=== PATIENT | female | born 1945 | race Caucasian/White ===

== ENCOUNTER 2020-02-04 07:02 | Outpatient (CLI) | payer MEDICARE, SELFPAY ==
[2020-02-04 07:28] LABS: Basophils Absolute Auto 0.05 K/mm3 (0.00-0.10); Basophils Percent Auto 0.9 % (0.0-1.0); Eosinophils Absolute Auto 0.22 K/mm3 (0.02-0.50); Eosinophils Percent Auto 3.9 % (1.0-6.0); Hematocrit 40.2 % (35.0-42.0); Hemoglobin 13.4 g/dL (11.7-13.8); Immature Granulocyte Absolute 0.02 K/mm3 (0.00-0.00); Immature Granulocyte Percent A 0.4 % (0.0-0.0); Lymphocytes Absolute Auto 1.31 K/mm3 (1.10-4.50); Lymphocytes Percent Auto 23.4 % (18.0-42.0); Mean Corpuscular HGB Conc 33.3 g/dL (32.0-36.0); Mean Corpuscular Hemoglobin 29.1 pg (27.0-31.0); Mean Corpuscular Volume 87.2 fL (78.0-102.0); Mean Platelet Volume 9.2 fl (9.2-11.8); Monocytes Absolute Auto 0.55 K/mm3 (0.10-0.90); Monocytes Percent Auto 9.8 % (2.0-11.0); Neutrophils Absolute Auto 3.4 K/mm3 (1.7-7.2); Neutrophils Percent Auto 61.6 % (50.0-70.0); Platelet Count Result 211 K/mm3 (150-420); Red Blood Count 4.61 M/mm3 (4.20-5.40); Red Cell Distribution Width 12.4 % (11.6-14.4); White Blood Count 5.6 K/mm3 (4.8-10.8)
[2020-02-04 08:49] LABS: Anion Gap 10.5 mmol/L (7-16); Blood Urea Nitrogen 18 mg/dL (7-18); Calcium 8.6 mg/dL (8.5-10.1); Carbon Dioxide 33 mmol/L (21-32); Chloride 102 mmol/L (98-108); Cholesterol 188 mg/dL (0-200); Estimated Glomerular Filt Rate > 60; Glucose 89 mg/dL (70-99); HDL Direct 57 mg/dL (40-60); LDL Cholesterol Calculated 110 mg/dL (<130); Osmolality Calculated 294 mOsm/kg (285-295); Potassium 3.5 mmol/L (3.5-5.1); Sodium 142 mmol/L (136-145); Triglycerides 103 mg/dL (0-150)
[2020-02-04 09:39] LABS: Thyroid Stimulating Hormone Reflex 4.57 u/IU/mL (0.36-3.74)
[2020-02-04 10:01] LABS: Free T4 Free Thyroxine Reflex 1.21 ng/dL (0.76-1.46)
== END 2020-02-04 07:03 | disposition home or self-care (01) ==
PROVIDERS: PCP Family Medicine; Visit Provider Family Medicine
DX: I10 Essential (primary) hypertension (principal); Z12.11 Encounter for screening for malignant neoplasm of colon; Z12.12 Encounter for screening for malignant neoplasm of rectum
CPT/HCPCS: 36415; 80048; 80061; 84439; 84443; 85025

== ENCOUNTER 2020-02-12 14:46 | Outpatient (CLI) | payer MEDICARE, OTHER, SELFPAY ==
--- NOTE | ~2020-02-12 | MM_ITS ---
CORRECTED REPORT ORDER CHANGE TITLE CHANGE 02/12/20 [facility] [place] EXAMINATION: MM screening mammo BI WITH TONY HISTORY: Screening mammogram TECHNIQUE: Craniocaudal and mediolateral oblique 3-D tomosynthesis images were obtained and synthetic 2-D images were generated. CAD analysis was submitted and interpreted. COMPARISON: 03/28/2017 BREAST PARENCHYMAL COMPOSITION: FINDINGS: Stable benign-appearing left subareolar mass. There is no evidence of suspicious mass, calcification, or architectural distortion to suggest malignancy in either breast. There has been no suspicious interval change. IMPRESSION: 1. No mammographic evidence of malignancy. 2. Recommend routine screening mammography in one year. BI-RADS Category 2: Benign finding(s). Reviewed, dictated and finalized at location A. MTDD
== END 2020-02-12 14:47 | disposition home or self-care (01) ==
LOC: CHSIMG 14:49
PROVIDERS: PCP Family Medicine; Visit Provider Family Medicine
DX: Z12.31 Encounter for screening mammogram for malignant neoplasm of breast (principal)
CPT/HCPCS: 77063; 77067

== ENCOUNTER 2020-06-04 03:51 | Outpatient (CLI) | payer MEDICARE, OTHER, SELFPAY ==
[2020-06-04 19:05] LABS: SARS-CoV-2 RNA PCR Negative
== END 2020-06-04 03:52 | disposition home or self-care (01) ==
LOC: ANHCOVIDDT 03:52
PROVIDERS: PCP Family Medicine; Visit Provider Internal Medicine Gastroenterology
DX: Z01.812 Encounter for preprocedural laboratory examination (principal); Z20.828 Contact with and (suspected) exposure to other viral communicable diseases
CPT/HCPCS: 87635; C9803; U0003

== ENCOUNTER 2020-06-06 01:47 | Day surgery (SDC) | payer MEDICARE, OTHER, SELFPAY ==
[2020-06-02 10:17] VITALS: BMI 22.7
[2020-06-06 09:55] VITALS: BP 150/79; PULSE 72; RESP 18; TEMP 36.6; O2SAT 100; BMI 22.0
--- NOTE | 2020-06-06 09:57 | P.PNAN_ITS ---
Anes - Initial Pre Proc Eval Procedure: Operation Date: 06/06/20 11:15 Proposed Procedures p Screening Colonoscopy - James Barclay MD Date/Time: 06/06/20 09:57 Surgeon: James Barclay MD Pre Op Diagnosis: Neoplasm Screening Patient Data Age: 75 Gender: F Height: 1.7 m Weight: 65.9 kg Allergies Allergy/AdvReac Type Severity Reaction Status Date / Time Sulfonamides Allergy Intermediate Unknown Uncoded 06/06/20 09:54 Home Medications Medication Instructions Recorded Confirmed Type aspirin 81 mg tablet,delayed 81 mg PO DAILY #90 tablet 01/28/20 06/06/20 Rx release metoprolol tartrate 50 mg tablet 50 mg PO Q12H #180 tablet 01/28/20 06/02/20 Rx simvastatin 20 mg tablet 20 mg PO DAILY #90 tablet 01/28/20 06/02/20 Rx hydrochlorothiazide 25 mg tablet 25 mg PO DAILY #90 tablet 04/30/20 06/02/20 Rx levothyroxine 100 mcg tablet 100 mcg PO DAILY #90 tablet 04/30/20 06/02/20 Rx peg 3350-electrolytes 236 240 ml PO Q10M #4000 ml 05/07/20 Rx gram-22.74 gram-6.74 gram-5.86 gram solution Patient hx anesthesia problems: none Family hx anesthesia problems: none PMFSH Past Medical History Medical History Collar bone fracture 2011 Fracture of right hip 2008 Hyperlipidemia Hypertension Hypothyroidism Family History Family History Father , Age 66 Heart disease Mother , Age 58 Acute myocardial infarction Social History Social History Smoking status: Never smoker Substance use type: does not use Living arrangements: with family Additional living arrangements comments: . 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[employer] Gender identity (if verbalized by the patient): Female Spiritual care concerns: No Anes - Eval Final PreProcedure Day of Procedure 06/06/20 09:57 Patient weight: normal Heart: regular rate and rhythm Lungs: clear to auscultation and normal air movement Airway: Mallampati scale class II Neurological: alert and oriented Last oral intake: >/= 8 hours ASA classification: II Emergent: no Anesthetic plan: proceed Anesthesia type and monitoring: general GIVS Informed Consent: The patient's anesthetic plan and its attendant risks and benefits were discussed with the patient/family/POA. Questions were solicited and answers provided to the satisfaction of the patient/family/POA.
[2020-06-06] MEDS: LACTATED RINGERS 1,000 ML 150 ML IV CONT (10:08)
--- NOTE | 2020-06-06 11:32 | PM.HPGS ---
History of Present Illness History of Present Illness Consent: Risks, benefits, and alternatives have been discussed and questions answered. Patient agrees to proceed with procedure. Chief complaint: Neoplasm Screening Narrative: Tresa Cosby is a 75 year old female here for first screening colonoscopy Review of Systems Constitutional: Constitutional: Denies headache(s) and Denies weakness Eyes: Eyes: Denies blurry vision ENT: Reports Normal hearing present, Denies headache(s) and Denies neck pain Cardiovascular: Cardiovascular: Denies chest pain and Denies dyspnea Respiratory: Respiratory: Denies dyspnea Gastrointestinal: Gastrointestinal: Reports no additional gastrointestinal complaints Genitourinary: Genitourinary: Denies dysuria Musculoskeletal: Musculoskeletal: Denies neck pain Integumentary/Breasts: Skin/Breast: Denies dry skin Neurologic: Reports Normal hearing present, Denies headache(s) and Denies weakness Psychiatric: Psychiatric: Denies anxiety Endocrine: Endocrine: Denies change in body appearance Hematologic/Lymphatic: Hematologic/Lymphatic: Denies easy bleeding Allergic/Immunologic: Allergic/Immunologic: Denies urticaria PMF Past Medical History Medical History (Updated 06/06/20 @ 11:33 by James Barclay MD) Collar bone fracture 2012 Colon cancer screening Fracture of right hip 2009 Hyperlipidemia Hypertension Hypothyroidism Family History Family History Father , Age 66 Heart disease Mother , Age 58 Acute myocardial infarction Social History Social History Smoking status: Never smoker Substance use type: does not use Living arrangements: with family Additional living arrangements comments: . 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[email or web address] Gender identity (if verbalized by the patient): Female Spiritual care concerns: No Meds Home Medications and Allergies Home Medications Medication Instructions Recorded Confirmed Type aspirin 81 mg tablet,delayed 81 mg PO DAILY #90 tablet 01/28/20 06/06/20 Rx release metoprolol tartrate 50 mg tablet 50 mg PO Q12H #180 tablet 01/28/20 06/02/20 Rx simvastatin 20 mg tablet 20 mg PO DAILY #90 tablet 01/28/20 06/02/20 Rx hydrochlorothiazide 25 mg tablet 25 mg PO DAILY #90 tablet 09/16/20 10/19/20 Rx levothyroxine 100 mcg tablet 100 mcg PO DAILY #90 tablet 04/30/20 06/02/20 Rx peg 3350-electrolytes 236 240 ml PO Q10M #4000 ml 05/07/20 Rx gram-22.74 gram-6.74 gram-5.86 gram solution Allergies Allergy/AdvReac Type Severity Reaction Status Date / Time Sulfonamides Allergy Intermediate Unknown Uncoded 06/06/20 09:54 Vital Signs Vital Signs - 24 hr 06/06/20 09:55 Temperature 97.9 F Pulse Rate 72 Respiratory Rate 18 Blood Pressure 150/79 H Pulse Oximetry 100 Exam Const: General: comfortable and no acute distress HENMT: General nose exam: Normal nares present Eyes: General: appearance normal, both eyes and all related structures Neck: Neck: no JVD Resp: Auscultation: clear to auscultation bilaterally Cardio: Rate: regular rate Rhythm: regular rhythm GI: Inspection: non-distended GI Palp: Yes Soft to palpation Skin: General skin exam: normal color Neuro: General: gait normal Speech: normal speech Extrem: General: normal to inspection Psych: Mental Status: mental status grossly normal Assessment and Plan Assessment and plan (1) Colon cancer screening: Code(s): Z12.11 - Encounter for screening for malignant neoplasm of colon Status: Acute Assessment and Plan: will proceed with colonoscopy (2) Hypertension: Code(s): I10 - Essential (primary) hypertension Status: Chronic
[2020-06-06 11:34] VITALS: BP 86/42; PULSE 65; RESP 14; O2SAT 99
[2020-06-06 11:44] VITALS: BP 87/44; PULSE 64; RESP 13; O2SAT 99
[2020-06-06 11:54] VITALS: BP 117/60; PULSE 66; RESP 17; O2SAT 99
== END 2020-06-06 12:22 | disposition home or self-care (01) ==
PROVIDERS: PCP Family Medicine; Visit Provider Internal Medicine Gastroenterology
PROC: 0DJD8ZZ Inspection of Lower Intestinal Tract, Via Natural or Artificial Opening Endoscopic (ICD-10-PCS; CPT 45378; principal; 2020-06-06 11:15)
DX: Z12.11 Encounter for screening for malignant neoplasm of colon (principal); K63.5 Polyp of colon; D12.8 Benign neoplasm of rectum; K57.90 Diverticulosis of intestine, part unspecified, without perforation or abscess without bleeding; K64.8 Other hemorrhoids; I10 Essential (primary) hypertension; E03.9 Hypothyroidism, unspecified; E78.5 Hyperlipidemia, unspecified
CPT/HCPCS: 45385; 88305; J2704; J7120

== ENCOUNTER 2020-09-05 08:12 | Outpatient (CLI) | payer MEDICARE, OTHER, SELFPAY ==
--- NOTE | ~2020-09-05 | DEXA_ITS ---
Bone Density Report Name: Tresa Cosby Age: 75 Sex: Female Ethnicity: White Date of : 1945 Indication: postmenopausal; screening for osteoporosis; prior fracture; Referring Provider: Cezar Ray Study: Bone densitometry was performed. Exam Date: September 05, 2020 Accession number: [id number] Bone Density: Region BMD T-score Z-score Classification AP Spine(L1-L4) 0.929 -1.1 1.3 Osteopenia Femoral Neck (Left) 0.627 -2.0 0.1 Osteopenia Total Hip (Left) 0.671 -2.2 -0.5 Osteopenia World Health Organization criteria for BMD impression classify patients as: Normal (T-score at or above -1.0), Osteopenia (T-score between -1.0 and -2.5), or Osteoporosis (T-score at or below -2.5). 10-year Fracture Risk: FRAX not reported because: Prior hip or vertebral fracture Clinical Information Provided by Patient: Have had a previous hip or vertebral fracture Has had a low trauma fracture Menopause Age: 51 Drinks caffeinated beverages Onset of menses at age 15 Number of children 3 Impression: The patient has low bone mass, based on the Left Total Hip T-score. The patient has risk factors, including: previous fracture. Discussion: INCREASED RISK OF FRACTURE DUE TO HISTORY OF FRACTURE. The patient's previous fracture puts the patient at high risk of a future fracture. In untreated patients, the risk of osteoporotic fracture increases approximately two-fold for each 1.0 SD decrease in T-score. Low bone density is not the only risk factor for fracture; also consider factors such as patient's age, frailty or poor health, risk of falling, risk of injury, previous osteoporotic fracture, family history of osteoporosis, cigarette smoking, low body weight, etc. Not everyone with a low trauma fracture has osteoporosis; osteomalacia and other metabolic bone disorders should also be considered. Patients who have osteoporosis should be evaluated for specific diseases and conditions (secondary causes) that may cause or contribute to bone loss and fracture risk. National Osteoporosis Foundation (NOF) recommends pharmacologic intervention for patients with a prior hip or vertebral fracture regardless of BMD T-score. The patient should follow a healthful lifestyle (good nutrition with adequate calcium and vitamin D, and appropriate weight-bearing exercise). Follow-Up: Consider a repeat BMD and Vertebral Fracture Assessment (VFA) exam in 2 years or sooner if medically necessary, to reassess this patient's status. Reported by: Dr. Albin Casillas on 09/05/2020 8:32:00 AM. Reviewed, dictated and finalized at location [facility]
== END 2020-09-05 08:13 | disposition home or self-care (01) ==
LOC: CHSIMG 08:14
PROVIDERS: PCP Family Medicine; Visit Provider Family Medicine
DX: Z78.0 Asymptomatic menopausal state (principal)
CPT/HCPCS: 77080

== ENCOUNTER 2021-01-11 13:20 | Emergency (ER) | payer MEDICARE, OTHER, SELFPAY ==
[2021-01-11 13:30] VITALS: BP 187/93; PULSE 76; RESP 16; TEMP 36.4; O2SAT 94
--- NOTE | 2021-01-11 13:53 | ECG_ITS ---
Measurements Intervals Dick[place] Rate: 65 P: 56 NJ: 170 QRS: -38 QRSD: 100 T: 21 QT: 406 QTc: 424 Interpretive Statements SINUS RHYTHM LEFT AXIS DEVIATION VOLTAGE CRITERIA FOR LVH BORDERLINE R WAVE PROGRESSION, ANTERIOR LEADS INFERIOR INFARCT, AGE INDETERMINATE BASELINE ARTIFACT- II, III ABNORMAL ECG Electronically Signed On 01-11-2021 19:53:17 CDT by Shreyas Gloria D.O.
[2021-01-11] MEDS: amLODIPine BESYLATE 5 MG TABLET PO (14:15)
[2021-01-11 14:19] LABS: Appearance Urine Clear (Clear); Bilirubin Urine Negative (Negative); Color Urine Yellow (Yellow); Glucose Urine UA Negative (Negative); Ketones Urine Negative (Negative); Leukocyte Esterase Ur Negative (Negative); Nitrate Urine Negative (Negative); Protein Urine Negative (Negative); Urobilinogen Urine 0.2 mg/dL (0.2-1.0); pH Urine 6.5 (5.0-8.0)
[2021-01-11 14:24] LABS: Add Urine Microscopic? YES; Bacteria Urine Trace /hpf; Blood Urine Trace-Intact (Negative); RBC Urine 0-2 /hpf (0-2); Squamous Epithelial Cell Urine None seen /hpf (Few); WBC Urine 0-3 /hpf (0-3)
[2021-01-11 14:42] LABS: Alanine Aminotransferase 26 U/L (14-59); Albumin Level 4.1 g/dL (3.4-5.0); Alkaline Phosphatase 105 U/L (46-116); Anion Gap 10 mmol/L (8-16); Aspartate Amino Transferase 20 U/L (15-37); Bilirubin,Total 0.3 mg/dL (0.00-1.00); Blood Urea Nitrogen 13 mg/dL (7-18); Calcium 9.1 mg/dL (8.5-10.1); Carbon Dioxide 31 mmol/L (21-32); Chloride 100 mmol/L (98-108); Estimated CRCL calculation 46 ml/min; Estimated Glomerular Filt Rate 60; Glucose 101 mg/dL (70-99); NT Pro B Type Natriuretic Pept 333 pg/mL (0-125); Osmolality Calculated 292 mOsm/kg (285-295); Potassium 3.3 mmol/L (3.5-5.1); Sodium 141 mmol/L (136-145); Thyroid Stimulating Hormone 4.15 uIU/mL (0.36-3.74); Total Protein 8.3 g/dL (6.4-8.2); Troponin I 4.4 ng/L (0.00-60.4)
[2021-01-11 14:45] VITALS: BP 166/80; PULSE 70; RESP 14; O2SAT 96
--- NOTE | 2021-01-11 15:01 | ED.GENADULT ---
HPI - General Adult General Chief complaint: Recheck/Abnormal Lab/Rx Stated complaint: High BP Source: patient Mode of arrival: ambulatory Limitations: no limitations History of Present Illness HPI narrative: this is a 75-year-old female with a history of hypertension that presents to the emergency department with some elevated blood pressures initially her blood pressure 187/93 with a mild headache with no blurry vision no nausea vomiting no dizziness no chest pain no shortness of breath. The blood pressure 187/93 has some as patient has been on metoprolol 100 b.i.d. for her blood pressure. Currently there is no dysuria no hematuria no flank pain. Onset (ago): hour(s) Location: head ( headache) Severity: mild Severity scale (1-10): 3 Related Data Allergies Allergy/AdvReac Type Severity Reaction Status Date / Time Sulfa (Sulfonamide Allergy Hives Verified 01/11/21 13:24 Antibiotics) amlodipine AdvReac Intermediate Swelling Verified 10/13/20 09:28 Review of Systems Review of Systems: All systems reviewed & are unremarkable except as noted in HPI and below PMFSH Past Medical History Medical History Collar bone fracture 2011 Colon cancer screening Fracture of right hip 2008 Hyperlipidemia Hypertension Hypothyroidism Family History Family History Father , Age 66 Heart disease Mother , Age 58 Acute myocardial infarction Social History Social History Smoking status: Never smoker Substance use type: does not use Additional living arrangements comments: . 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[employer] Gender identity (if verbalized by the patient): Female Spiritual care concerns: No Exam Const: General: no acute distress and alert Orientation/consciousness: patient oriented x3 HENMT: Head: normal to inspection Eyes: Conjunctivae: conjunctivae normal Pupils: Equal, round and reactive pupils present Neck: Neck: normal visual inspection Chest: Chest palpation & inspection: normal inspection of the chest Resp: Effort & Inspection: normal respiratory effort Cardio: Rate: regular rate Rhythm: regular rhythm GI: GI Palp: Yes Soft to palpation Back/Spine/Pelvis: Back: no CVA tenderness Skin: General skin exam: normal color Rashes: no rashes Neuro: General: patient oriented x3, moves all extremities, no meningeal signs and no focal motor deficits Extrem: General: normal to inspection and no pedal edema Psych: Mental Status: mental status grossly normal Affect: normal affect Course Course Emergency Course: Re-evaluation of patient blood pressure improved at 161/80, patient received a dose of Norvasc 5 mg and a dose of potassium 40 mEq orally. Vital Signs Vital signs: Vital Signs Temperature 36.4 C 01/11/21 13:30 Pulse Rate 76 01/11/21 13:30 Respiratory Rate 16 01/11/21 13:30 Blood Pressure 187/93 H 01/11/21 13:30 Pulse Oximetry 94 01/11/21 13:30 Temperature 36.4 C 01/11/21 13:30 Pulse Rate 76 01/11/21 13:30 Respiratory Rate 16 01/11/21 13:30 Blood Pressure 187/93 H 01/11/21 13:30 Pulse Oximetry 94 01/11/21 13:30 Medical Decision Making Vital Signs Vital Signs: Vital Signs Temperature 36.4 C 01/11/21 13:30 Pulse Rate 76 01/11/21 13:30 Respiratory Rate 16 01/11/21 13:30 Blood Pressure 187/93 H 01/11/21 13:30 Pulse Oximetry 94 01/11/21 13:30 Temperature 36.4 C 01/11/21 13:30 Pulse Rate 76 01/11/21 13:30 Respiratory Rate 16 01/11/21 13:30 Blood Pressure 187/93 H 01/11/21 13:30 Pulse Oximetry 94 01/11/21 13:30 Lab Data Result diagrams: 01/11/21 14:13 Labs: Lab Results 01/11/21 01/11/21 01/11/21 Range/Units 13:54 14:13 14:13 Sodium
== END 2021-01-11 15:18 | disposition home or self-care (01) ==
PROVIDERS: Emergency Provider Emergency Medicine; PCP Family Medicine
DX: I10 Essential (primary) hypertension (principal); E78.5 Hyperlipidemia, unspecified; E03.9 Hypothyroidism, unspecified
CPT/HCPCS: 36415; 80053; 81001; 83880; 84443; 84484; 93005; 99283; A9270

== ENCOUNTER 2021-05-09 08:23 | Outpatient (CLI) | payer MEDICARE, SELFPAY ==
[2021-05-09 14:56] LABS: SARS-CoV-2 RNA PCR Negative (Negative)
== END 2021-05-09 08:24 | disposition home or self-care (01) ==
LOC: CHSLAB 08:26
PROVIDERS: PCP Family Medicine; Visit Provider Family Medicine
DX: Z20.822 Contact with and (suspected) exposure to COVID-19 (principal)
CPT/HCPCS: C9803; U0003; U0005

== ENCOUNTER 2022-02-16 14:37 | Outpatient (CLI) | payer MEDICARE, OTHER, SELFPAY ==
[2022-02-16 14:58] LABS: Hematocrit 38.4 % (35.0-42.0); Hemoglobin 12.7 g/dL (11.7-13.8); Mean Corpuscular HGB Conc 33.1 g/dL (32.0-36.0); Mean Corpuscular Hemoglobin 28.8 pg (27.0-31.0); Mean Corpuscular Volume 87.1 fL (78.0-102.0); Mean Platelet Volume 9.1 fl (9.2-11.8); Platelet Count Result 229 K/mm3 (150-420); Red Blood Count 4.41 M/mm3 (4.20-5.40); Red Cell Distribution Width 12.6 % (11.6-14.4); White Blood Count 7.3 K/mm3 (4.8-10.8)
[2022-02-16 15:13] LABS: Alanine Aminotransferase 22 U/L (14-59); Albumin Level 3.6 g/dL (3.4-5.0); Alkaline Phosphatase 103 U/L (46-116); Anion Gap 7 mmol/L (8-16); Aspartate Amino Transferase 16 U/L (15-37); Bilirubin,Total 0.3 mg/dL (0.00-1.00); Blood Urea Nitrogen 19 mg/dL (7-18); Calcium 8.8 mg/dL (8.5-10.1); Carbon Dioxide 31 mmol/L (21-32); Chloride 105 mmol/L (98-108); Cholesterol 177 mg/dL (0-200); Estimated Glomerular Filt Rate 54; Glucose 115 mg/dL (70-99); HDL Direct 55 mg/dL (40-60); LDL Cholesterol Calculated 79 mg/dL (<130); Osmolality Calculated 299 mOsm/kg (285-295); Potassium 3.2 mmol/L (3.5-5.1); Sodium 143 mmol/L (136-145); Total Protein 7.2 g/dL (6.4-8.2); Triglycerides 217 mg/dL (0-150)
[2022-02-16 16:08] LABS: Thyroid Stimulating Hormone Reflex 4.18 u/IU/mL (0.36-3.74)
[2022-02-16 16:37] LABS: Free T4 Free Thyroxine Reflex 1.12 ng/dL (0.76-1.46)
== END 2022-02-16 14:38 | disposition home or self-care (01) ==
LOC: CHSLAB 14:40
PROVIDERS: PCP Family Medicine; Visit Provider Family Medicine
DX: E78.5 Hyperlipidemia, unspecified (principal); I10 Essential (primary) hypertension; E03.9 Hypothyroidism, unspecified; E11.9 Type 2 diabetes mellitus without complications
CPT/HCPCS: 36415; 80053; 80061; 84439; 84443; 85027

== ENCOUNTER 2022-07-05 13:41 | Outpatient (CLI) | payer MEDICARE, OTHER, SELFPAY ==
--- NOTE | ~2022-07-05 | XR_ITS ---
XR shoulder RT min 2V DATE: 07/05/2022 14:29 INDICATION: Right shoulder pain for 3 weeks, radiating to neck TECHNIQUE: 4 views COMPARISON: 04/08/2012 right shoulder FINDINGS: There is old healed fracture deformity of the midshaft of the right clavicle. Diffuse osteopenia. There is mild to moderate osteophyte is at the right glenohumeral joint. No recent fracture or dislocation, periosteal reaction or bone destruction is detected. No significant abnormal calcification of the right shoulder is noted. 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 [employer]ISTRATIVE ASSISTANT
== END 2022-07-05 13:42 | disposition home or self-care (01) ==
LOC: CHSIMG 13:43
PROVIDERS: PCP Family Medicine; Visit Provider Family Medicine
DX: M25.511 Pain in right shoulder (principal)
CPT/HCPCS: 73030

== ENCOUNTER 2023-02-18 08:20 | Outpatient (CLI) | payer MEDICARE, OTHER, SELFPAY ==
[2023-02-18 08:37] LABS: Basophils Absolute Auto 0.06 K/mm3 (0.00-0.10); Basophils Percent Auto 0.9 % (0.0-1.0); Eosinophils Absolute Auto 0.39 K/mm3 (0.02-0.50); Eosinophils Percent Auto 5.6 % (1.0-6.0); Hematocrit 40.7 % (35.0-42.0); Hemoglobin 13.5 g/dL (11.7-13.8); Immature Granulocyte Absolute 0.02 K/mm3 (0.00-0.00); Immature Granulocyte Percent A 0.3 % (0.0-0.0); Lymphocytes Absolute Auto 1.38 K/mm3 (1.10-4.50); Lymphocytes Percent Auto 19.7 % (18.0-42.0); Mean Corpuscular HGB Conc 33.2 g/dL (32.0-36.0); Mean Corpuscular Hemoglobin 29.2 pg (27.0-31.0); Mean Corpuscular Volume 88.1 fL (78.0-102.0); Monocytes Absolute Auto 0.62 K/mm3 (0.10-0.90); Monocytes Percent Auto 8.8 % (2.0-11.0); Neutrophils Absolute Auto 4.5 K/mm3 (1.7-7.2); Neutrophils Percent Auto 64.7 % (50.0-70.0); Platelet Count Result 255 K/mm3 (150-420); Red Blood Count 4.62 M/mm3 (4.20-5.40); Red Cell Distribution Width 12.4 % (11.6-14.4)
[2023-02-18 09:28] LABS: Alanine Aminotransferase 24 U/L (14-59); Albumin Level 3.8 g/dL (3.4-5.0); Alkaline Phosphatase 104 U/L (46-116); Anion Gap 7 mmol/L (8-16); Aspartate Amino Transferase 15 U/L (15-37); Bilirubin,Total 0.5 mg/dL (0.00-1.00); Blood Urea Nitrogen 12 mg/dL (7-18); Carbon Dioxide 32 mmol/L (21-32); Chloride 102 mmol/L (98-108); Estimated Glomerular Filt Rate > 60; Glucose 90 mg/dL (70-99); Osmolality Calculated 291 mOsm/kg (285-295); Potassium 4.2 mmol/L (3.5-5.1); Sodium 141 mmol/L (136-145); Total Protein 7.4 g/dL (6.4-8.2)
[2023-02-18 09:31] LABS: Thyroid Stimulating Hormone Reflex 1.04 u/IU/mL (0.36-3.74)
== END 2023-02-18 08:21 | disposition home or self-care (01) ==
LOC: CHSLAB 08:22
PROVIDERS: PCP Family Medicine; Visit Provider Family Medicine
DX: E11.9 Type 2 diabetes mellitus without complications (principal); E03.9 Hypothyroidism, unspecified; I10 Essential (primary) hypertension
CPT/HCPCS: 36415; 80053; 84443; 85025

== ENCOUNTER 2023-12-24 20:13 | Emergency (ER) | payer MEDICARE, OTHER, SELFPAY ==
--- NOTE | ~2023-12-24 | XR_ITS ---
EXAM: XR knee RT min 4V DATE: 12/24/2023 20:49 HISTORY: Pain, injury/ KNEE TWISTED, POSTERIOR PAIN. . COMPARISON: None available. FINDINGS: Decreased mineralization. Posterior avulsion fragment versus loose body or large posterior osteophyte. No lytic or blastic lesion. Mild tricompartmental osteoarthritis. No erosion or perioste al change. Soft tissues within normal limits. IMPRESSION: Possible posterior avulsion fracture fragment in the expected location of the PCL inserti on versus artifact from a loose joint body or osteophyte. Large joint effusion. Consider conservative management and MRI of the knee for further evaluation. Reviewed, dictated and finalized at location K. IMPRESSION: Possible posterior avulsion fracture fragment in the expected locat ion of the PCL insertion versus artifact from a loose joint body or osteophyte. Large joint effusion. Consider conservative management and MRI of the knee for further evaluation.
[2023-12-24 20:31] VITALS: BP 143/68; PULSE 72; RESP 17; TEMP 36.2; O2SAT 99
--- NOTE | 2023-12-24 21:52 | ED.LOWEXIN ---
HPI - Extremity Injury (Lower) General Chief Complaint: Extremity Injury, Lower Stated Complaint: fall, R knee injury Time Seen by Provider: 12/24/23 21:52 History of Present Illness HPI Narrative: 78-year-old female presents to the emergency department for right knee pain. Patient states earlier today she was cleaning off the pool cover when she slipped on the pool cover and fell. States she twisted her right knee and landed on her buttock. She is reporting a small abrasion and bruising to her left forearm, otherwise denies other injury. She did not hit her head or lose consciousness, denies neck pain or back pain, hip pain. Last tetanus unknown. She follows with orthopedic surgeon, Dr. Li. Related Data Home Medications Medication Instructions Recorded Confirmed cholecalciferol (vitamin D3) 125 125 mcg PO DAILY 08/21/21 02/23/23 mcg (5,000 unit) capsule Allergies Allergy/AdvReac Type Severity Reaction Status Date / Time Sulfa (Sulfonamide Allergy Hives Verified 12/24/23 20:34 Antibiotics) amlodipine AdvReac Intermediate Swelling Verified 12/24/23 20:34 Review of Systems Review of Systems: CONSTITUTIONAL: Denies fever, chills, or sweats. EYES: Denies visual changes, redness, or discharge. ENT: Denies rhinorrhea, congestion, sore throat, or otalgia. CARDIOVASCULAR: Denies chest pain, palpitations, or edema. RESPIRATORY: Denies cough or dyspnea. GASTROINTESTINAL: Denies abdominal pain, nausea, vomiting, or diarrhea. GENITOURINARY: Denies dysuria or hematuria. SKIN: Denies rash or itching. MUSCULOSKELETAL: See HPI NEUROLOGIC: Denies headache, numbness, or weakness. PSYCHIATRIC: Denies anxiety or depression. [facility] Past Medical History Medical History Collar bone fracture 2012 Colon cancer screening Fracture of right hip 2009 Hyperlipidemia Hypertension Hypothyroidism Family History Family History Father , Age 66 Heart disease Mother , Age 58 Acute myocardial infarction Social History Social History Smoking status: Never smoker Substance use type: does not use Lack of Transportation: No Lack of Food: Never True Current Housing: I Have Housing Concerned About Future Housing: No Difficulty Paying Gas/Electric Bills: No Difficulty Paying for Meds: No Currently Unemployed: No Education: High School Diploma/GED Difficulty w/ Childcare or Family Care: No Living arrangements: with family Additional living arrangements comments: . 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 HEAD: Normocephalic, atraumatic. EYES: PERRLA and EOMI. ENT: Nares clear, no rhinorrhea or epistaxis. Mucous membranes moist. NECK: Supple. No midline cervical spinous tenderness, step-offs or deformities. BACK: No thoracolumbar spinous tenderness, step-offs or deformities CHEST: Clear to auscultation. No respiratory distress. HEART: Regular rate and rhythm. No murmur heard. Normal peripheral pulses. EXTREMITIES: RLE: Diffuse tenderness to the knee with edema. Full active and passive range of motion. No overlying warmth or erythema. Pain with anterior drawer. No laxity with varus or valgus stress. Sensation intact. DP pulse 2 +. No pain to remainder of lower extremity. Compartments soft. SKIN: Superficial abrasion to the left proximal forearm with surrounding ecchymosis. Bleeding controlled. No bony tenderness. Full range of motion of elbow. Radial pulse 2 +. Sensation intact. Compartments soft. NEURO: No focal deficits. Alert and oriented
[2023-12-24] MEDS: TETANUS,DIPHTHERIA,AC PERTUSSIS ADULT (0.5 ML) BOOSTRIX IM (22:12)
== END 2023-12-24 22:25 | disposition home or self-care (01) ==
PROVIDERS: Emergency Provider Physician Assistant; PCP Family Medicine
DX: S83.91XA Sprain of unspecified site of right knee, initial encounter (principal); S50.812A Abrasion of left forearm, initial encounter; Z23 Encounter for immunization; I10 Essential (primary) hypertension; E78.5 Hyperlipidemia, unspecified; E03.9 Hypothyroidism, unspecified; Z79.82 Long term (current) use of aspirin; W01.0XXA Fall on same level from slipping, tripping and stumbling without subsequent striking against object, initial encounter
CPT/HCPCS: 73564; 90471; 90715; 99283

== ENCOUNTER 2024-01-05 08:31 | Outpatient (CLI) | payer MEDICARE, OTHER, SELFPAY ==
--- NOTE | ~2024-01-05 | MR_ITS ---
MRI of the right knee Clinical history: Pain Technique: Coronal proton density and proton density-weighted images, sagittal proton-density and T2 fat-sat images, and axial proton-density fat-saturated images were acquired. Findings: There is complete tear of the ACL. Posterior cruciate ligament is intact. Medial collateral ligament and the lateral collateral again complex are intact. Popliteus tendon is intact. There is probably a complex tear of the posterior horn of the medial meniscus extending to the body s egment. Probable focal tearing of the body segment of the lateral meniscus noted. There is a nearly nondisplaced, nondepressed fracture of the posterolateral tibial plateau with exten sive surrounding marrow edema. There is extensive grade IV chondromalacia the lateral patellar facet. There is extensive moderate chondral malacia the femoral trochlea, and the medial lateral compartmen ts. Small osteophytes are present about the knee. Extensor mechanism is intact. Moderate joint effusion present. Moderate Hagan's cyst present. Impression: Nearly nondisplaced, nondepressed fracture of the posterolateral tibial plateau, with extensive surro unding marrow edema. Complete ACL tear. Complex tear of the posterior horn of the medial meniscus extending to the body segment. Probable focal complex tear of the body segment of the lateral meniscus. Moderate tricompartmental osteoarthritic change, as detailed above. Moderate joint effusion and moderate Hagan's cyst. Reviewed, dictated and finalized at [facility]. Impression: Nearly nondisplaced, nondepressed fracture of the posterolateral tibial plateau , with extensive surrounding marrow edema. Complete ACL tear. Complex tear of the posterior horn of the medial meniscus extending to the body segment. Probable focal complex tear of the body segment of the lateral meniscus. Moderate tricompartmental osteoarthritic change, as detailed above. Moderate joint effusion and moderate Hagan's cyst.
== END 2024-01-05 08:32 ==
PROVIDERS: PCP Family Medicine; Visit Provider Physician Assistant Surgical
DX: M17.11 Unilateral primary osteoarthritis, right knee (principal); M25.461 Effusion, right knee; S83.511A Sprain of anterior cruciate ligament of right knee, initial encounter; X58.XXXA Exposure to other specified factors, initial encounter; S83.231A Complex tear of medial meniscus, current injury, right knee, initial encounter
CPT/HCPCS: 73721

== ENCOUNTER 2024-03-27 09:39 | Outpatient (CLI) | payer MEDICARE, OTHER, SELFPAY ==
[2024-03-27 10:11] LABS: Basophils Absolute Auto 0.06 K/mm3 (0.00-0.10); Basophils Percent Auto 0.9 % (0.0-1.0); Eosinophils Absolute Auto 0.31 K/mm3 (0.02-0.50); Eosinophils Percent Auto 4.5 % (1.0-6.0); Hematocrit 41.1 % (35.0-42.0); Hemoglobin 13.4 g/dL (11.7-13.8); Immature Granulocyte Absolute 0.03 K/mm3 (0.00-0.00); Immature Granulocyte Percent A 0.4 % (0.0-0.0); Lymphocytes Absolute Auto 1.33 K/mm3 (1.10-4.50); Lymphocytes Percent Auto 19.4 % (18.0-42.0); Mean Corpuscular HGB Conc 32.6 g/dL (32-36); Mean Corpuscular Hemoglobin 28.5 pg (27.0-31.0); Mean Corpuscular Volume 87.3 fL (78.0-102.0); Monocytes Absolute Auto 0.56 K/mm3 (0.10-0.90); Monocytes Percent Auto 8.2 % (2.0-11.0); Neutrophils Absolute Auto 4.57 K/mm3 (1.70-7.20); Neutrophils Percent Auto 66.6 % (50.0-70.0); Platelet Count Result 248 K/mm3 (150-420); Red Blood Count 4.71 M/mm3 (4.20-5.40); Red Cell Distribution Width 12.6 % (11.6-14.4); White Blood Count 6.9 K/mm3 (4.8-10.8)
[2024-03-27 11:29] LABS: Alanine Aminotransferase 23 U/L (14-59); Albumin Level 3.9 g/dL (3.4-5.0); Alkaline Phosphatase 122 U/L (46-116); Anion Gap 4 mmol/L (4-12); Aspartate Amino Transferase 19 U/L (15-37); Bilirubin,Total 0.5 mg/dL (0.00-1.00); Blood Urea Nitrogen 9 mg/dL (7-18); Carbon Dioxide 34 mmol/L (21-32); Chloride 101 mmol/L (98-108); Cholesterol 220 mg/dL (0-200); Estimated Glomerular Filt Rate > 60; Glucose 89 mg/dL (70-99); HDL Direct 63 mg/dL (40-60); LDL Cholesterol Calculated 133 mg/dL (<130); Osmolality Calculated 285 mOsm/kg (285-295); Potassium 4.3 mmol/L (3.5-5.1); Sodium 139 mmol/L (136-145); Total Protein 7.6 g/dL (6.4-8.2); Triglycerides 122 mg/dL (0-150)
[2024-03-27 11:33] LABS: Thyroid Stimulating Hormone Reflex 2.18 u/IU/mL (0.36-3.74)
== END 2024-03-27 09:40 | disposition home or self-care (01) ==
PROVIDERS: PCP Family Medicine; Visit Provider Family Medicine
DX: E03.9 Hypothyroidism, unspecified (principal); E78.5 Hyperlipidemia, unspecified; I10 Essential (primary) hypertension
CPT/HCPCS: 36415; 80053; 80061; 84443; 85025

== ENCOUNTER 2024-04-04 11:34 | Outpatient (CLI) | payer MEDICARE, OTHER, SELFPAY ==
--- NOTE | ~2024-04-04 | DEXA_ITS ---
Bone Density Report Name: EUGENIA HAHN Age: 79 Sex: Female Ethnicity: White Date of : 1945 Indication: osteopenia; height loss; prior fracture; Referring Provider: Cezar Ray Study: Bone densitometry was performed. Exam Date: April 04, 2024 Accession number: [id number] Bone Density: Region BMD T-score Z-score Classification AP Spine(L1-L4) 0.942 -1.0 1.6 Normal Femoral Neck (Left) 0.604 -2.2 0.0 Osteopenia Total Hip (Left) 0.617 -2.7 -0.7 Osteoporosis World Health Organization criteria for BMD impression classify patients as: Normal (T-score at or above -1.0), Osteopenia (T-score between -1.0 and -2.5), or Osteoporosis (T-score at or below -2.5). 10-year Fracture Risk: FRAX not reported because: Some T-score for Spine Total or Hip Total or Femoral Neck at or below -2.5 Prior hip or vertebral fracture Previous Exams: Region Exam Age BMD T-score BMD Change BMD Change Date g/cm2 vs Baseline vs Previous AP Spine (L1-L4) 04/04/2024 79 0.942 -1.0 0.013 (1.4%)# 0.013 (1.4%)# 09/05/2020 75 0.929 -1.1 Total Hip(Left) 04/04/2024 79 0.617 -2.7 -0.054 (-8.0%) -0.054 (-8.0%) 09/05/2020 75 0.671 -2.2 *Denotes significance at 95% confidence level, LSC for AP Spine = 0.022 g/cm2, LSC for Total Hip = 0.027 g/cm2 # Denotes dissimilar scan types or analysis methods Clinical Information Provided by Patient: Have had a previous hip or vertebral fracture Has had a low trauma fracture Has used the following medications: Calcium, daily vitamin Patient maximum height was 67 Menopause Age: 51 No regular weight bearing exercise Drinks caffeinated beverages Onset of menses at age 15 Number of children 3 Impression: The patient has established osteoporosis, based on the Left Total Hip T-score and the existence of a prior fracture. The patient has risk factors, including: previous fracture. No significant bone loss was observed. Discussion: HIGH RISK OF FRACTURE. BONE DENSITY IS UNDESIRABLY LOW AT ONE OR MORE SKELETAL SITES, CONSISTENT WITH POSTMENOPAUSAL OSTEOPOROSIS. This patient's lowest T-score, in a patient who has previously fractured, meets the World Health Organization's (WHO) criteria for severe osteoporosis. In untreated patients, the risk of osteoporotic fracture increases approximately two-fold for each 1.0 SD decrease in T-score. Low bone density is not the only risk factor for fracture; also consider factors such as patient's age, frailty or poor health, risk of falling, risk of injury, previous osteopor
== END 2024-04-04 11:35 | disposition home or self-care (01) ==
LOC: CHSIMG 11:36
PROVIDERS: PCP Family Medicine; Visit Provider Family Medicine
DX: Z78.0 Asymptomatic menopausal state (principal); M85.88 Other specified disorders of bone density and structure, other site; M81.0 Age-related osteoporosis without current pathological fracture
CPT/HCPCS: 77080

== ENCOUNTER 2024-11-08 08:41 | Outpatient (CLI) | payer MEDICARE, SELFPAY ==
[2024-11-08 09:02] LABS: Basophils Absolute Auto 0.06 K/mm3 (0.00-0.10); Eosinophils Percent Auto 4.9 % (1.0-6.0); Hematocrit 44.3 % (35.0-42.0); Hemoglobin 14.1 g/dL (11.7-13.8); Immature Granulocyte Absolute 0.02 K/mm3 (0.00-0.00); Immature Granulocyte Percent A 0.3 % (0.0-0.0); Lymphocytes Absolute Auto 1.17 K/mm3 (1.10-4.50); Lymphocytes Percent Auto 19.3 % (18.0-42.0); Mean Corpuscular HGB Conc 31.8 g/dL (32-36); Mean Corpuscular Hemoglobin 27.6 pg (27.0-31.0); Mean Corpuscular Volume 86.9 fL (78.0-102.0); Mean Platelet Volume 9.3 fl (9.2-11.8); Monocytes Absolute Auto 0.52 K/mm3 (0.10-0.90); Monocytes Percent Auto 8.6 % (2.0-11.0); Neutrophils Percent Auto 65.9 % (50.0-70.0); Platelet Count Result 257 K/mm3 (150-420); White Blood Count 6.1 K/mm3 (4.8-10.8)
[2024-11-08 09:21] LABS: Prothrombin Time 10.8 Seconds (9.50-12.1)
[2024-11-08 10:32] LABS: Alanine Aminotransferase 279 U/L (14-59); Albumin Level 3.8 g/dL (3.4-5.0); Alkaline Phosphatase 205 U/L (46-116); Anion Gap 6 mmol/L (4-12); Aspartate Amino Transferase 165 U/L (15-37); Bilirubin,Total 0.6 mg/dL (0.00-1.00); Blood Urea Nitrogen 10 mg/dL (7-18); Calcium 8.8 mg/dL (8.5-10.1); Carbon Dioxide 34 mmol/L (21-32); Chloride 102 mmol/L (98-108); Estimated Glomerular Filt Rate > 60; Glucose 97 mg/dL (70-99); Osmolality Calculated 293 mOsm/kg (285-295); Potassium 3.6 mmol/L (3.5-5.1); Sodium 142 mmol/L (136-145); Total Protein 8.2 g/dL (6.4-8.2); Vitamin B12 995 pg/mL (193-986)
[2024-11-08 10:33] LABS: Folic Acid > 20.0 ng/mL (8.6->20)
[2024-11-08 16:39] LABS: Ferritin 265 ng/mL (8-252)
[2024-11-09 08:59] LABS: Hepatitis B Surface Antigen NON-REACTIVE (NON-REACTIVE)
[2024-11-09 09:08] LABS: Hepatitis A Antibody IgM NON-REACTIVE (NON-REACTIVE); Hepatitis B Core Antibody NON-REACTIVE (NON-REACTIVE)
[2024-11-09 09:28] LABS: Hepatitis C Virus Antibody NON-REACTIVE (NON-REACTIVE)
[2024-11-10 03:47] LABS: Ceruloplasmin 30 mg/dL (14-48)
[2024-11-10 03:58] LABS: ANA Cascade Screen POSITIVE (NEGATIVE); Chromatin (Nucleosomal) Ab <1.0 NEG AI (<1.0 NEG); Chromatin Antibody Charge YES; DNA (ds) Antibody Charge YES; RNP Antibody <1.0 NEG AI (<1.0 NEG); RNP Antibody Charge YES; Sm Antibody <1.0 NEG AI (<1.0 NEG); Sm Antibody Charge YES; Sm/RNP Antibody <1.0 NEG AI (<1.0 NEG); Sm/RNP Antibody Charge YES
== END 2024-11-08 08:42 | disposition home or self-care (01) ==
PROVIDERS: PCP Family Medicine; Visit Provider Family Medicine
DX: I10 Essential (primary) hypertension (principal); R10.9 Unspecified abdominal pain; E53.8 Deficiency of other specified B group vitamins; E03.9 Hypothyroidism, unspecified; R74.01 Elevation of levels of liver transaminase levels; D50.9 Iron deficiency anemia, unspecified; M79.641 Pain in right hand; M79.642 Pain in left hand
CPT/HCPCS: 36415; 80053; 80074; 82390; 82607; 82728; 82746; 83516; 84443; 85025; 85610; 86038; 86225; 86235

== ENCOUNTER 2024-11-12 07:22 | Outpatient (CLI) | payer MEDICARE, SELFPAY ==
--- NOTE | ~2024-11-12 | US_ITS ---
Abdominal Sonogram: Real-time sonographic imaging of the abdomen was performed. Clinical History: Abnormal liver enzymes levels Findings: The liver appears heterogeneous, with no evidence of mass lesion or bile duct dilatation. Main portal vein demonstrates normal direction of flow. The spleen is normal in size without evidence of focal lesion. The gallbladder is well distended, and appears normal with no evidence of gallston e or wall thickening. The common bile duct measures 4 mm. The visualized pancreas, aorta, and IVC ar e unremarkable. The right kidney measures 10.2 cm in length and the left kidney measures 10.2 cm. T here is no hydronephrosis or renal calculus. Impression: Probable diffuse fatty infiltration of the liver versus possibly other chronic liver disease. Reviewed, dictated and finalized at location . Impression: Probable diffuse fatty infiltration of the liver versus possibly other chronic liver disease.
== END 2024-11-12 07:23 | disposition home or self-care (01) ==
LOC: CHSIMG 07:23
PROVIDERS: PCP Family Medicine; Visit Provider Family Medicine
DX: R74.01 Elevation of levels of liver transaminase levels (principal)
CPT/HCPCS: 76700

== ENCOUNTER 2025-01-18 07:45 | Outpatient (CLI) | payer MEDICARE, OTHER, SELFPAY ==
[2025-01-18 12:16] LABS: Alanine Aminotransferase 21 U/L (6-35); Albumin Level 4.1 g/dL (3.5-5.1); Alkaline Phosphatase 97 U/L (38-126); Anion Gap 5 mmol/L (4-12); Aspartate Amino Transferase 29 U/L (14-36); Bilirubin,Total 0.5 mg/dL (0.2-1.3); Blood Urea Nitrogen 14 mg/dL (7-17); Calcium 8.8 mg/dL (8.4-10.2); Carbon Dioxide 30 mmol/L (22-30); Chloride 103 mmol/L (98-107); Estimated Glomerular Filt Rate > 60; Glucose 95 mg/dL (65-110); Iron 85 ug/dL (37-170); Osmolality Calculated 286 mOsm/kg (285-295); Potassium 4.8 mmol/L (3.4-5.0); Sodium 138 mmol/L (137-145); Total Protein 7.4 g/dL (6.3-8.2)
[2025-01-18 12:31] LABS: Percent Iron Saturation 29 % (20-50)
[2025-01-19 06:49] LABS: Hepatitis B Surface Antigen NON-REACTIVE (NON-REACTIVE)
[2025-01-19 07:24] LABS: Hepatitis A Antibody IgM NON-REACTIVE (NON-REACTIVE); Hepatitis B Core Antibody NON-REACTIVE (NON-REACTIVE); Hepatitis C Virus Antibody NON-REACTIVE (NON-REACTIVE)
[2025-01-20 06:58] LABS: Ceruloplasmin 30 mg/dL (14-48); Immunoglobulin G 1629 mg/dL (600-1540); Immunoglobulin M 119 mg/dL (50-300)
[2025-01-22 21:47] LABS: LKM 1 Antibody <=20.0 U (<=20.0)
[2025-01-24 07:37] LABS: Actin Antibody (IgG) 35 U (<20)
[2025-01-24 11:09] LABS: Mitochondrial (M2) Ab (IgG) <20.0 U
== END 2025-01-18 07:46 | disposition home or self-care (01) ==
LOC: CHSLAB 07:46
PROVIDERS: PCP Family Medicine; Visit Provider Internal Medicine Gastroenterology
DX: R79.89 Other specified abnormal findings of blood chemistry (principal); R74.01 Elevation of levels of liver transaminase levels; K76.0 Fatty (change of) liver, not elsewhere classified; R74.8 Abnormal levels of other serum enzymes
CPT/HCPCS: 36415; 80053; 80074; 81596; 82104; 82390; 82728; 82784; 83520; 83540; 83550; 86038; 86039; 86364; 86376

== ENCOUNTER 2025-01-27 06:13 | Emergency (ER) | payer MEDICARE, OTHER, SELFPAY ==
[2025-01-27 06:13] VITALS: BP 178/89; PULSE 78; RESP 16; TEMP 36.5; O2SAT 97
--- NOTE | 2025-01-27 06:21 | ED.GENADULT ---
HPI - General Adult General Chief complaint: Skin/Abscess/Foreign Body Stated complaint: Allergic Reaction Time Seen by Provider: 01/27/25 06:21 Source: patient Mode of arrival: ambulatory Limitations: no limitations History of Present Illness HPI narrative: 79 years old white female came to the ED by private car complaining of itching skin rash all over mainly upper and lower extremity, itching eyes, swelling of the eyelids, history of allergy. The above symptoms started 2 days ago, she denies any trouble breathing or swallowing. History of similar symptoms many times in the past secondary to different kind of allergies Related Data Home Medications ?Medication ?Instructions ?Recorded ?Confirmed ?Last Taken ?Type cholecalciferol (vitamin D3) 125 125 mcg PO DAILY 08/21/21 11/08/24 Unknown History mcg (5,000 unit) capsule Allergies Allergy/AdvReac Type Severity Reaction Status Date / Time Sulfa (Sulfonamide Allergy Hives Verified 01/27/25 06:20 Antibiotics) amlodipine AdvReac Intermediate Swelling Verified 01/27/25 06:20 Review of Systems Review of Systems: All systems reviewed & are unremarkable except as noted in HPI and below PMFSH Past Medical History Medical History Family history of colon cancer Adenomatous colon polyp Fatty liver Colon cancer screening Collar bone fracture 2011 Fracture of right hip 2008 Hyperlipidemia Hypertension Hypothyroidism Family History Family History Father , Age 66 Heart disease Mother , Age 58 Acute myocardial infarction Social History Social History Smoking status: Never smoker Substance use type: does not use Lack of Transportation: No Lack of Food: Never True Current Housing: I Have Housing Concerned About Future Housing: No Difficulty Paying Gas/Electric Bills: No Difficulty Paying for Meds: No Currently Unemployed: No Education: High School Diploma/GED Difficulty w/ Childcare or Family Care: No Living arrangements: with family Additional living arrangements comments: . 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[employer] Gender identity (if verbalized by the patient): Female Spiritual care concerns: No Exam Narrative: General appearance: Well-developed, well-nourished Skin: eczematous she changes on the lower extremity mainly left 1, maculopapular rash all over including face Head: Normocephalic, nontraumatic Eyes: conjunctival injection, puffiness of the eyelids ENT: Oropharynx normal, ears normal, nose normal Neck: Supple, nontender Chest and respiratory: Airway patent, no respiratory distress, no accessory muscle use Heart: Regular rate/rhythm Abdomen: Soft, nontender, no organomegaly, quiet bowel sounds Vascular: Normal peripheral pulses, normal capillary refill. Musculoskeletal: Normal range of motion, nontender back Neurologic: Alert and oriented ?3, DONOR RELATIONS COORDINATOR is normal as tested, no gross motor deficit Critical Care Time Critical Care Time Critical Care Time: No Discharge Plan Discharge Clinical Impression: Allergic reaction Patient Disposition: Home Condition: Stable Instructions: General Allergic Reaction (ED), Conjunctivitis (ED) Additional Instructions: Return if symptoms are worsening , call your family physician for appointment, take Tylenol as as needed for aches and pain, continue home medications. Patient Language: [place] Prescriptions: New triamcinolone acetonide 0.5 % ointment 1 applic topical BID Qty: 45 0RF Zyrtec 10 mg capsule 10 mg PO BID PRN (Reason: allergy symptoms) Qty: 30 0RF prednisone 20 mg tablet 40 mg PO DAILY 5 Days Qty: 10 0RF olopatadine [Pataday Once Daily Relief] 0.2 % drops 1 drp EACH EYE DAILY Qty: 2.5 0RF No Action cholecalciferol (vitamin D3) 125 mcg (5,000 unit) capsule 125 mcg PO DAILY aspirin [Adult Low Dose Aspirin] 81 mg tablet,delayed release (DR/EC) 81 mg PO DAILY Qty: 90 3RF losartan 50 mg tablet See Rx Instructions .ROUTE .COMPLEX Qty: 90 3RF Dose Instruction: Take 1 tablet by mouth once daily Rx Instructions: Take 1 tablet by mouth once daily amlodipine 5 mg tablet See Rx Instructions .ROUTE .COMPLEX Qty: 90 3RF Dose Instruction: Take 1 tablet by mouth once daily Rx Instructions: Take 1 tablet by mouth once daily metoprolol tartrate 100 mg tablet See Rx Instructions .ROUTE .COMPLEX Qty: 180 3RF Dose Instruction: TAKE 1 TABLET BY MOUTH EVERY 12 HOURS Rx Instructions: TAKE 1 TABLET BY MOUTH EVERY 12 HOURS alendronate 70 mg tablet 70 mg PO WEEKLY Qty: 12 3RF levothyroxine 125 mcg tablet See Rx Instructions .ROUTE .COMPLEX Qty: 90 2RF Dose Instruction: Take 1 tablet by mouth once daily Rx Instructions: Take 1 tablet by mouth once daily Follow-up/Referrals: Cezar Ray DO [Primary Care Provider] -
[2025-01-27] MEDS: LORATADINE 10 MG TABLET PO (06:35)
[2025-01-27] MEDS: predniSONE 20 MG TABLET 60 MG PO (06:35)
== END 2025-01-27 06:57 | disposition home or self-care (01) ==
LOC: CHSED 06:53
PROVIDERS: Emergency Provider Emergency Medicine; PCP Family Medicine
DX: T78.40XA Allergy, unspecified, initial encounter (principal); E78.5 Hyperlipidemia, unspecified; I10 Essential (primary) hypertension; E03.9 Hypothyroidism, unspecified
CPT/HCPCS: 99283; A9270; J7512

== ENCOUNTER 2025-02-22 09:16 | Outpatient (CLI) | payer MEDICARE, OTHER, SELFPAY ==
--- NOTE | ~2025-02-22 | XR_ITS ---
EXAM/ PROCEDURE: XR hand LT min 3V - 02/22/2025 9:34 CDT HISTORY: 79 years old Female with Injury, Lt. hand pain at region of 4th-5th MC x1 week COMPARISON: None available TECHNIQUE: Three view(s) FINDINGS/ IMPRESSION: There are no fractures or dislocations.Joint space narrowing, subchondral sclerosis, subchondral cyst formation and osteophyte formation, compatible with moderate osteoarthritis. Reviewed, dictated and finalized at location A.
== END 2025-02-22 09:17 | disposition home or self-care (01) ==
LOC: CHSIMG 09:18
PROVIDERS: PCP Family Medicine; Visit Provider Family Medicine
DX: M79.642 Pain in left hand (principal); E78.5 Hyperlipidemia, unspecified; I10 Essential (primary) hypertension
CPT/HCPCS: 73130

== ENCOUNTER 2025-04-01 01:58 | Day surgery (SDC) | payer MEDICARE, OTHER, SELFPAY ==
[2025-03-21 09:33] VITALS: BMI 22.7
[2025-04-01 11:28] VITALS: BP 161/82; PULSE 75; RESP 18; TEMP 36.7; O2SAT 99
[2025-04-01] MEDS: LACTATED RINGERS 1,000 ML 150 ML IV CONT (11:39)
--- NOTE | 2025-04-01 11:50 | WPDANESEPPF ---
Anes - Initial Pre Proc Eval Procedure: Operation Date: 04/01/25 12:45 Proposed Procedures p Screening Colonoscopy - James Barclay MD Date/Time: 04/01/25 11:50 Surgeon: James Barclay MD Pre Op Diagnosis: screening, family history of colon cancer Patient Data Age: 80 Gender: F Height: 1.7 m Weight: 65.4 kg Last Vital Signs Temp 36.7 C 04/01/25 11:28 Pulse 75 04/01/25 11:28 Resp 18 04/01/25 11:28 BP 161/82 H 04/01/25 11:28 Pulse Ox 99 04/01/25 11:28 O2 Del Method Room Air 04/01/25 11:28 Allergies Allergy/AdvReac Type Severity Reaction Status Date / Time Sulfa (Sulfonamide Allergy Hives Verified 04/01/25 11:27 Antibiotics) amlodipine AdvReac Intermediate Swelling Verified 04/01/25 11:27 Home Medications ?Medication ?Instructions ?Recorded ?Confirmed ?Type cholecalciferol (vitamin D3) 125 125 mcg PO DAILY 08/21/21 04/01/25 History mcg (5,000 unit) capsule aspirin 81 mg tablet,delayed 81 mg PO DAILY #90 tabs 03/27/24 04/01/25 Rx release (Adult Low Dose Aspirin) cetirizine 10 mg capsule (Zyrtec) 10 mg PO BID PRN allergy symptoms 01/27/25 04/01/25 Rx #30 caps betamethasone valerate 0.1 % 1 applic topical BID PRN rash #45 02/11/25 03/21/25 Rx topical cream grams nifedipine 60 mg tablet,extended 60 mg PO DAILY #90 tabs 02/11/25 04/01/25 Rx release triamcinolone acetonide 0.5 % 1 applic topical BID #45 grams 02/11/25 04/01/25 Rx topical ointment alendronate 70 mg tablet 70 mg PO WEEKLY #12 tabs 02/22/25 04/01/25 Rx levothyroxine 125 mcg tablet See Rx Instructions .Route 02/22/25 04/01/25 Rx .COMPLEX #90 tabs losartan 50 mg tablet See Rx Instructions .Route 02/22/25 04/01/25 Rx .COMPLEX #90 tabs metoprolol tartrate 100 mg tablet See Rx Instructions .Route 02/22/25 04/01/25 Rx .COMPLEX #180 tabs Patient hx anesthesia problems: none Family hx anesthesia problems: none Results Review: All pre-operative results and documents have been reviewed as part of the pre-operative evaluation. [facility] Past Medical History Medical History Family history of colon cancer Adenomatous colon polyp Fatty liver Colon cancer screening Collar bone fracture 2012 Fracture of right hip 2008 Hyperlipidemia Hypertension Hypothyroidism Family History Family History Father , Age 66 Heart disease Mother , Age 58 Acute myocardial infarction Social History Social History Smoking status: Never smoker Substance use: never Substance use type: does not use Lack of Transportation: No Lack of Food: Never True Current Housing: I Have Housing Concerned About Future Housing: No Difficulty Paying Gas/Electric Bills: No Difficulty Paying for Meds: No Currently Unemployed: No Education: High School Diploma/GED Difficulty w/ Childcare or Family Care: No Living arrangements: with family Additional living arrangements comments: . 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 Informed Consent: The patient's anesthetic plan and its attendant risks and benefits were discussed with the patient/family/POA. Questions were solicited and answers provided to the satisfaction of the patient/family/POA.
--- NOTE | 2025-04-01 13:00 | PM.HPGS ---
History of Present Illness History of Present Illness Consent: Risks, benefits, and alternatives have been discussed and questions answered. Patient agrees to proceed with procedure. Chief complaint: screening, family history of colon cancer Narrative: Tresa Cosby is a 80 year old female with history of colon polyp Review of Systems Review of Systems: All systems reviewed & are unremarkable except as noted in HPI and below PMFSH Past Medical History Medical History Family history of colon cancer Adenomatous colon polyp Fatty liver Colon cancer screening Collar bone fracture 2012 Fracture of right hip 2008 Hyperlipidemia Hypertension Hypothyroidism Family History Family History Father , Age 66 Heart disease Mother , Age 58 Acute myocardial infarction Social History Social History Smoking status: Never smoker Substance use: never Substance use type: does not use Lack of Transportation: No Lack of Food: Never True Current Housing: I Have Housing Concerned About Future Housing: No Difficulty Paying Gas/Electric Bills: No Difficulty Paying for Meds: No Currently Unemployed: No Education: High School Diploma/GED Difficulty w/ Childcare or Family Care: No Living arrangements: with family Additional living arrangements comments: . 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[employer] Gender identity (if verbalized by the patient): Female Spiritual care concerns: No Meds Home Medications and Allergies Home Medications ?Medication ?Instructions ?Recorded ?Confirmed ?Type cholecalciferol (vitamin D3) 125 125 mcg PO DAILY 08/21/21 04/01/25 History mcg (5,000 unit) capsule aspirin 81 mg tablet,delayed 81 mg PO DAILY #90 tabs 03/27/24 04/01/25 Rx release (Adult Low Dose Aspirin) cetirizine 10 mg capsule (Zyrtec) 10 mg PO BID PRN allergy symptoms 01/27/25 04/01/25 Rx #30 caps betamethasone valerate 0.1 % 1 applic topical BID PRN rash #45 02/11/25 03/21/25 Rx topical cream grams nifedipine 60 mg tablet,extended 60 mg PO DAILY #90 tabs 02/11/25 04/01/25 Rx release triamcinolone acetonide 0.5 % 1 applic topical BID #45 grams 02/11/25 04/01/25 Rx topical ointment alendronate 70 mg tablet 70 mg PO WEEKLY #12 tabs 02/22/25 04/01/25 Rx levothyroxine 125 mcg tablet See Rx Instructions .Route 02/22/25 04/01/25 Rx .COMPLEX #90 tabs losartan 50 mg tablet See Rx Instructions .Route 02/22/25 04/01/25 Rx .COMPLEX #90 tabs metoprolol tartrate 100 mg tablet See Rx Instructions .Route 02/22/25 04/01/25 Rx .COMPLEX #180 tabs Allergies Allergy/AdvReac Type Severity Reaction Status Date / Time Sulfa (Sulfonamide Allergy Hives Verified 04/01/25 11:27 Antibiotics) amlodipine AdvReac Intermediate Swelling Verified 04/01/25 11:27 Vital Signs Vital Signs - 24 hr 04/01/25 11:28 Temperature 98.1 F Pulse Rate 75 Respiratory Rate 18 Blood Pressure 161/82 H Pulse Oximetry 99 Oxygen Delivery Room Air Exam Const: General: comfortable and no acute distress HENMT: Face/Nose/Sinus: Normal nares present Eyes: General: appearance normal, both eyes and all related structures Neck: Neck: no JVD Resp: Auscultation: clear to auscultation bilaterally Cardio: Rate: regular rate Rhythm: regular rhythm GI: Inspection: non-distended GI Palp: Yes Soft to palpation Skin: General skin exam: normal color Neuro: Speech: normal speech Extrem: General: normal to inspection Psych: Mental Status: mental status grossly normal Assessment and Plan Assessment and plan (1) Adenomatous colon polyp: Code(s): D12.6 - Benign neoplasm of colon, unspecified Status: Acute Assessment and Plan: colonoscopy
[2025-04-01 13:15] VITALS: BP 111/67; PULSE 71; RESP 15; O2SAT 100
[2025-04-01 13:25] VITALS: BP 139/78; PULSE 72; RESP 20; O2SAT 98
[2025-04-01 13:35] VITALS: BP 176/88; PULSE 66; RESP 18; O2SAT 100
== END 2025-04-01 13:46 | disposition home or self-care (01) ==
PROVIDERS: PCP Family Medicine; Visit Provider Internal Medicine Gastroenterology
PROC: 0DJD8ZZ Inspection of Lower Intestinal Tract, Via Natural or Artificial Opening Endoscopic (ICD-10-PCS; CPT 45378; principal; 2025-04-01 12:45)
DX: Z12.11 Encounter for screening for malignant neoplasm of colon (principal); K64.8 Other hemorrhoids; K57.30 Diverticulosis of large intestine without perforation or abscess without bleeding; E78.5 Hyperlipidemia, unspecified; I10 Essential (primary) hypertension; E03.9 Hypothyroidism, unspecified; Z79.82 Long term (current) use of aspirin; Z79.83 Long term (current) use of bisphosphonates; Z86.0100 Personal history of colon polyps, unspecified; Z80.0 Family history of malignant neoplasm of digestive organs; Z82.49 Family history of ischemic heart disease and other diseases of the circulatory system
CPT/HCPCS: G0105; J2704; J7120

== ENCOUNTER 2025-04-17 21:33 | Emergency (ER) | payer MEDICARE, OTHER, SELFPAY ==
--- NOTE | ~2025-04-17 | CT_ITS ---
EXAMINATION: CTA abdomen pelvis DATE: 04/18/2025 01:19 INDICATION: Liver hemorrhage TECHNIQUE: Computed tomographic angiography (CTA) of the abdomen and pelvis was performed without and with 100 mL Omnipaque-350 intravenous contrast. Additional 3D reconstructions utilizing rotating maximum intensity projection (MIP) were performed. Automated exposure control and iterative reconstruction technique were employed. The dose-length product was 910.47 mGy-cm. COMPARISON: None FINDINGS: Mild elevation left hemidiaphragm with mild left basilar atelectasis. There is additional mild dependent atelectasis in the bilateral lower lobes. Calcified right middle lobe nodule consistent with old granulomatous disease. Heart size is normal. No pericardial or pleural effusion. Again seen is heterogeneous attenuation in the lateral segment of the left hepatic lobe with appearance on the current and prior CT consistent with combination of intraparenchymal and subcapsular hemorrhage reportedly related to a reported prior liver biopsy. No evident active contrast extravasation. Persistent small amount of bubbly high density perihepatic fluid which extends caudally into the pelvis consistent with hemoperitoneum. Spleen, pancreas and bilateral adrenal glands are normal. There are residual striated nephrograms in both kidneys along with excreted contrast in the bilateral renal collecting systems and in the normal bladder on the precontrast imaging related to contrast administered on the earlier contrast- enhanced CT from 2 hours prior. The striated nephrograms can be seen in the setting of acute tubular necrosis or hypotension. There are a few subcentimeter bilateral nonenhancing renal cysts. Bowels including the appendix are normal. Simple appearing 8.1 x 6.5 cm left adnexal cyst without evident solid soft tissue component. Coarse calcification in the uterine fundus likely representing a degenerated uterine fibroid. Right adnexa is unremarkable. No pathologically enlarged abdominal or pelvic lymphadenopathy. Moderate lumbar and moderate to severe lower thoracic spondylosis. Grade 1 anterolisthesis L4 on L5. IMPRESSION: 1. No significant interval change in an intraparenchymal and subcapsular hematoma involving the left hepatic lobe likely related to recent liver biopsy. Also without significant interval change is an associated small hemoperitoneum. No evident active contrast extravasation. 2. Striated nephrograms at both kidneys on the precontrast imaging most likely related to hypotension secondary to the bleeding although differential would include acute tubular necrosis. 3. Simple appearing 8.1 x 6.1 cm left adnexal cyst. Consider nonemergent gynecologic consultation. 4. Calcified uterine fibroid. Reviewed, dictated and finalized at location A. IMPRESSION: 1. No significant interval change in an intraparenchymal and subcapsular hemato ma involving the left hepatic lobe likely related to recent liver biopsy. Also without significant interval change is an associated small hemoperitoneum. No e vident active contrast extravasation. 2. Striated nephrograms at both kidneys on the precontrast imaging most likely related to hypotension secondary to the bleeding although differential would in clude acute tubular necrosis. 3. Simple appearing 8.1 x 6.1 cm left adnexal cyst. Consider nonemergent gyneco logic consultation. 4. Calcified uterine fibroid.
--- NOTE | ~2025-04-17 | XR_ITS ---
EXAM/PROCEDURE: XR chest 1V portable - 04/17/2025 22:33 CDT HISTORY: 80 years old Female with shortness of breath had liver bx today TECHNIQUE: Two view(s) of the chest. COMPARISON: None available. FINDINGS: LUNGS/ PLEURA: No focal consolidation. No appreciable pneumothorax or large pleural effusion. Mild blunting of both costophrenic angles, likely scarring versus small pleural effusions. HEART/ MEDIASTINUM: Within normal limits. BONES: Degenerative changes. OTHER: Visualized upper abdomen is unremarkable. IMPRESSION: No acute process. Reviewed, dictated and finalized at location N. IMPRESSION: No acute process.
--- NOTE | ~2025-04-17 | CT_ITS ---
EXAM: CT abdomen pelvis w con - 04/17/2025 23:30 CDT History: 80 years old Female with RUQ abd pain, liver biopsy today TECHNIQUE: Multidetector CT of the abdomen and pelvis with intravenous contrast. Coronal and sagittal reformats were also provided for review. Automatic exposure control was used for this study. CONTRAST: 100 cc of Optiray 350 was used for this study. COMPARISON: None Available. FINDINGS: VISUALIZED CHEST: Posterior mediastinal right aspect 1.3 cm lymphadenopathy potentially reactive or neoplastic. ABDOMEN and PELVIS: LIVER: Large left hepatic lobe subcapsular hematoma likely 9 cm with moderate hemoperitoneum. GALLBLADDER: No calcified gallstones. BILE DUCTS: No dilatation. SPLEEN: Within normal limits. PANCREAS: Within normal limits. ADRENAL GLANDS: Within normal limits. KIDNEYS and URETERS: No hydronephrosis or hydroureter. No nephroureterolithiasis. Multiple subcentimeter hypodensities are seen in the kidneys, too small to accurately characterize. URINARY BLADDER: Within normal limits. STOMACH and BOWEL: No abnormal bowel wall thickening. No obstruction. REPRODUCTIVE ORGANS: 7.6 x 6.2 cm cystic structure in the left adnexa. MESENTERY/PERITONEAL CAVITY: Moderate hemoperitoneum. LYMPH NODES: No abdominal or pelvic lymphadenopathy. ABDOMINAL WALL: Within normal limits. VASCULATURE: Within normal limits. MUSCULOSKELETAL: Multilevel degenerative changes of the spine. Partially visualized ORIF at the right proximal femur. IMPRESSION: 1. Large left hepatic lobe subcapsular hematoma with moderate hemoperitoneum. Multiphasic CTA is recommended for further evaluation to rule out active extravasation. 2. Posterior mediastinal right aspect 1.3 cm lymphadenopathy potentially reactive or neoplastic. Correlate with prior imaging if available to document stability. 3. Large left adnexal cystic structure. Pelvic ultrasound is recommended for further evaluation. Reviewed, dictated and finalized at location N. IMPRESSION: 1. Large left hepatic lobe subcapsular hematoma with moderate hemoperitoneum. Multiphasic CTA is recommended for further evaluation to rule out active extrav asation. 2. Posterior mediastinal right aspect 1.3 cm lymphadenopathy potentially react po or neoplastic. Correlate with prior imaging if available to document stabil ity. 3. Large left adnexal cystic structure. Pelvic ultrasound is recommended for f urther evaluation.
[2025-04-17 21:42] VITALS: BP 127/86; PULSE 86; RESP 20; O2SAT 100
--- NOTE | 2025-04-17 22:30 | ECG_ITS ---
Test Date: 2025-04-17 22:52:06 Measurements Intervals [place] Rate: 74 P: 49 NH: 164 QRS: -45 QRSD: 82 T: 1 QT: 398 QTc: 442 Interpretive Statements SINUS RHYTHM POSSIBLE ANTERIOR MYOCARDIAL INFARCTION , PROBABLY OLD [30 ms Q WAVE IN V3/V4, OR R < 0.2 mV IN V4] INFERIOR MYOCARDIAL INFARCTION , PROBABLY OLD [40+ ms Q WAVE AND/OR ST/T ABNORMALITY IN II/aVF] No previous ECG available for comparison Electronically Signed On 04-18-2025 11:34:56 CDT by Gerry Baig M.D.
--- NOTE | 2025-04-17 22:42 | ED_ITS ---
HPI - SOB/Dyspnea General Chief Complaint: Shortness of Breath/Dyspnea <Jules Patel MD - Last Filed: 04/18/25 07:27> Stated Complaint: liver biopsy today, pain abdomen and SOB <Jules Patel MD - Last Filed: 04/18/25 07:27> Time Seen by Provider: 04/17/25 22:33 <Jules Patel MD - Last Filed: 04/18/25 07:27> History of Present Illness HPI Narrative: This is a 80-year-old female with history of hypertension, hyperlipidemia, hypothyroidism who presents to the ED for abdominal pain and shortness of breath. Patient states that she had a liver biopsy done today at [facility] due to elevated LFTs for unknown reason. She states that about an hour ago, she had acute right upper quadrant abdominal pain and shortness of breath due to that pain. She has had nausea but no vomiting. Denies fevers, chills, chest pain. she has not had bowel movement since the biopsy. <Jules Patel MD - Last Filed: 04/18/25 07:27> Related Data Home Medications: Home Medications ?Medication ?Instructions ?Recorded ?Confirmed ?Last Taken ?Type cholecalciferol (vitamin D3) 125 125 mcg PO DAILY 03/0504/01/25 03/31/25 History mcg (5,000 unit) capsule <Jules Patel MD - Last Filed: 04/18/25 07:27> Allergies/Adverse Reactions: Allergies Allergy/AdvReac Type Severity Reaction Status Date / Time Sulfa (Sulfonamide Allergy Hives Verified 04/01/25 11:27 Antibiotics) amlodipine AdvReac Intermediate Swelling Verified 04/01/25 11:27 <Jules Patel MD - Last Filed: 04/18/25 07:27> Review of Systems 2 Review of Systems: Gen.: Denies fevers or chills Eyes: Denies eye pain or visual change ENT: Denies congestion Respiratory: As per HPI CV: Denies chest pain or palpitations GI: as per HPI denies burning, urgency, frequency or hematuria Musculoskeletal: Denies back pain or muscle pain Neuro: Denies numbness, tingling, weakness or focal weakness Skin: Denies rash Except as documented, all other systems reviewed and negative <Jules Patel MD - Last Filed: 04/18/25 07:27> [facility] Past Medical History Medical History: Medical History Family history of colon cancer Adenomatous colon polyp Fatty liver Colon cancer screening Collar bone fracture 2011 Fracture of right hip 2008 Hyperlipidemia Hypertension Hypothyroidism <Jules Patel MD - Last Filed: 04/18/25 07:27> Family History Family History: Family History Father , Age 66 Heart disease Mother , Age 58 Acute myocardial infarction <Jules Patel MD - Last Filed: 04/18/25 07:27> Social History Social History: Social History Smoking status: Never smoker Substance use: never Substance use type: does not use Lack of Transportation: No Lack of Food: Never True Current Housing: I Have Housing Concerned About Future Housing: No Difficulty Paying Gas/Electric Bills: No Difficulty Paying for Meds: No Currently Unemployed: No Education: High School Diploma/GED Difficulty w/ Childcare or Family Care: No Living arrangements: with family Additional living arrangements comments: . 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[employer] Gender identity (if verbalized by the patient): Female Spiritual care concerns: No <Jules Patel MD - Last Filed: 04/18/25 07:27> Exam 2 Narrative: APPEARANCE: No acute distress, nontoxic, resting in bed EYES: EOMI HEENT: Normocephalic, atraumatic, OMM RESPIRATORY: No respiratory distress Clear to auscultation bilaterally with no rhonchi wheezing or rales. CARDIOVASCULAR: Regular rate and rhythm without murmurs rubs or gallops. ABDOMINAL: gauze to the right upper quadrant that is clean / dry / intact. Tenderness palpation of the right upper quadrant. MUSCULOSKELETAl: Moves all extremities. No clubbing, cyanosis or edema. NEURO: Awake and alert. Following commands, speech normal, no focal deficits SKIN:: Warm, dry. No rashes lesions or abrasions PSYCHIATRIC: Normal affect/mood, <Jules Patel MD - Last Filed: 04/18/25 07:27> Course Vital Signs Vital signs: Vital Signs Pulse Rate 86 04/17/25 21:42 Respiratory Rate 20 04/17/25 21:42 Blood Pressure 127/86 04/17/25 21:42 Pulse Oximetry 100 04/17/25 21:42 Oxygen Delivery Room Air 04/17/25 21:42 Temperature 37.1 C 04/18/25 06:10 Pulse Rate 72 04/18/25 08:05 Respiratory Rate 16 04/18/25 08:05 Blood Pressure 124/72 04/18/25 08:05 Pulse Oximetry 97 04/18/25 08:05 Oxygen Delivery Room Air 04/17/25 21:53 <Jules Patel MD - Last Filed: 04/18/25 07:27> Vital Signs Pulse Rate 86 04/17/25 21:42 Respiratory Rate 20 04/17/25 21:42 Blood Pressure 127/86 04/17/25 21:42 Pulse Oximetry 100 04/17/25 21:42 Oxygen Delivery Room Air 04/17/25 21:42 Temperature 37.1 C 04/18/25 06:10 Pulse Rate 72 04/18/25 08:05 Respiratory Rate 16 04/18/25 08:05 Blood Pressure 124/72 04/18/25 08:05 Pulse Oximetry 97 04/18/25 08:05 Oxygen Delivery Room Air 04/17/25 21:53 <Bryn Loredo MD - Last Filed: 04/18/25 08:50> MDM - SOB/Dyspnea MDM Narrative Medical decision making narrative: 80-year-old female that presented to the ED for right upper quadrant pain shortly after having liver biopsy earlier today at [facility] is. On initial evaluation, patient was in mild distress, afebrile, he would never supple. She did have tenderness to palpation to the right upper quadrant. Hemoglobin was 11.5 from baseline of 14. Mild leukocytosis of 14.4. Creatinine slightly elevated at 1.33. CT abdomen/pelvis with contrast showed a large left hepatic lobe subcapsular hematoma with moderate hemoperitoneum, recommended to have a trip with a CTA to evaluate for active extra. This CTA showed stable appearance of the 9 cm subcapsular hematoma with no extra of. Given this is a postop complication from procedure earlier today, patient will require transfer to [facility] for continuity of care. patient remained hemodynamically stable. Continued to pend bed at [facility]. Spoke with Dr. Gallo, bone char puller surgery, recommended transfer to tertiary care center in case patient needs a hepatobiliary surgeon. PAtient signed out to oncoming physician pending transfer. <Jules Patel MD - Last Filed: 04/18/25 07:27> 80-year-old female that presented to the ED for right upper quadrant pain shortly after having liver biopsy earlier today at [facility] is. On initial evaluation, patient was in mild distress, afebrile, he would never supple. She did have tenderness to palpation to the right upper quadrant. Hemoglobin was 11.5 from baseline of 14. Mild leukocytosis of 14.4. Creatinine slightly elevated at 1.33. CT abdomen/pelvis with contrast showed a large left hepatic lobe subcapsular hematoma with moderate hemoperitoneum, recommended to have a trip with a CTA to evaluate for active extra. This CTA showed stable appearance of the 9 cm subcapsular hematoma with no extra of. Given this is a postop complication from procedure earlier today, patient will require transfer to [facility] for continuity of care. patient remained hemodynamically stable. Continued to pend bed at [facility]. Spoke with Dr. Gallo, bone char puller surgery, recommended transfer to tertiary care center in case patient needs a hepatobiliary surgeon. PAtient signed out to oncoming physician pending transfer. The case was discussed with the [facility] transfer center the patient was accepted at [facility] the interventional radiologist Dr. Fan will consult and the patient was accepted to the emergency department by Dr. Waite After the patient was accepted at [facility] the [facility] transfer center called back saying that they would prefer to actually transfer the patient to [facility] patient was accepted by the acute Care Surgical Service and the emergency department by Dr. Way <Bryn Loredo MD - Last Filed: 04/18/25 08:50> Differential Diagnosis Differential diagnosis: Likely other ( postop complication, hemorrhage, constipation, electrolyte abnormality) <Jules Patel MD - Last Filed: 04/18/25 07:27> Medical Records Attestation: I reviewed the patient's medical records. <Jules Patel MD - Last Filed: 04/18/25 07:27> Lab Data Attestation: I reviewed the patient's lab results. <Jules Patel MD - Last Filed: 04/18/25 07:27> Result diagrams: 04/18/25 06:09 04/17/25 22:36 <Jules Patel MD - Last Filed: 04/18/25 07:27> Labs: Lab Results 04/17/25 04/18/25 Range/Units 22:36 06:09 WBC 14.4 H (4.5-10.0) K/mm3 RBC 3.98 L (4.2-5.4) M/mm3 Hgb 11.5 L 10.1 L (12.0-15.0) g/dL Hct 35.2 L 30.9 L (37.0-47.0) % MCV 88.4 (80-100) fl MCH 28.9 (26-34) pg MCHC 32.7 (32-36) g/dl RDW 12.8 (11.5-14.5) % Plt Count 306 (150-375) k/mm3 MPV 9.9 (7.4-10.4) fl Immature Gran % (Auto) 0.7 H (0-0.5) % Neut % (Auto) 88.8 H (45.5-73.1) % Lymph % (Auto) 6.1 L (18.3-44.2) % Weston % (Auto) 4.1 (2.6-8.5) % Eos % (Auto) 0.0 (0-4.4) % Baso % (Auto) 0.3 (0.2-1.2) % Lymph # (Auto) 0.88 L (0.9-3.2) K/mm3 Weston # (Auto) 0.6 (0.1-0.6) K/mm3 Eos # (Auto) 0.0 (0-0.3) K/mm3 Baso # (Auto) 0.1 (0.0-0.1) K/mm3 Abs Immat Gran (auto) 0.10 H (0.00-0.031) K/mm3 Absolute Neuts (auto) 12.8 H (1.3-6.7) K/mm3 Absolute Nucleated RBC 0.000 (0.0-0.012) K/mm3 Nucleated RBC % 0.0 (0.0-0.2) % Sodium 138 (137-145) mmol/L Potassium 3.8 (3.4-5.0) mmol/L Chloride 99 (98-107) mmol/L Carbon Dioxide 26 (22-30) mmol/L Anion Gap 13 H (4-12) mmol/L BUN 23 H (7-17) mg/dL Creatinine 1.33 H (0.7-1.0) mg/dL Estim Creat Clear Calc Not Reportable Estimated GFR 38 L (59 - ) Glucose 183 H (65-110) mg/dL Calcium 9.0 (8.4-10.2) mg/dL Total Bilirubin 0.5 (0.2-1.3) mg/dL AST 86 H (14-36) U/L ALT 84 H (6-35) U/L Alkaline Phosphatase 72 (38-126) U/L Troponin I < 0.012 (0.000-0.034) ng/mL NT-Pro-B Natriuret Pep 187 H (19.9-100) pg/mL Total Protein 7.4 (6.3-8.2) g/dL Albumin 4.1 (3.5-5.1) g/dL <Jules Patel MD - Last Filed: 04/18/25 07:27> Lab Results 04/17/25 04/18/25 Range/Units 22:36 06:09 WBC 14.4 H (4.5-10.0) K/mm3 RBC 3.98 L (4.2-5.4) M/mm3 Hgb 11.5 L 10.1 L (12.0-15.0) g/dL Hct 35.2 L 30.9 L (37.0-47.0) % MCV 88.4 (80-100) fl MCH 28.9 (26-34) pg MCHC 32.7 (32-36) g/dl RDW 12.8 (11.5-14.5) % Plt Count 306 (150-375) k/mm3 MPV 9.9 (7.4-10.4) fl Immature Gran % (Auto) 0.7 H (0-0.5) % Neut % (Auto) 88.8 H (45.5-73.1) % Lymph % (Auto) 6.1 L (18.3-44.2) % Weston % (Auto) 4.1 (2.6-8.5) % Eos % (Auto) 0.0 (0-4.4) % Baso % (Auto) 0.3 (0.2-1.2) % Lymph # (Auto) 0.88 L (0.9-3.2) K/mm3 Weston # (Auto) 0.6 (0.1-0.6) K/mm3 Eos # (Auto) 0.0 (0-0.3) K/mm3 Baso # (Auto) 0.1 (0.0-0.1) K/mm3 Abs Immat Gran (auto) 0.10 H (0.00-0.031) K/mm3 Absolute Neuts (auto) 12.8 H (1.3-6.7) K/mm3 Absolute Nucleated RBC 0.000 (0.0-0.012) K/mm3 Nucleated RBC % 0.0 (0.0-0.2) % Sodium 138 (137-145) mmol/L Potassium 3.8 (3.4-5.0) mmol/L Chloride 99 (98-107) mmol/L Carbon Dioxide 26 (22-30) mmol/L Anion Gap 13 H (4-12) mmol/L BUN 23 H (7-17) mg/dL Creatinine 1.33 H (0.7-1.0) mg/dL Estim Creat Clear Calc Not Reportable Estimated GFR 38 L (59 - ) Glucose 183 H (65-110) mg/dL Calcium 9.0 (8.4-10.2) mg/dL Total Bilirubin 0.5 (0.2-1.3) mg/dL AST 86 H (14-36) U/L ALT 84 H (6-35) U/L Alkaline Phosphatase 72 (38-126) U/L Troponin I < 0.012 (0.000-0.034) ng/mL NT-Pro-B Natriuret Pep 187 H (19.9-100) pg/mL Total Protein 7.4 (6.3-8.2) g/dL Albumin 4.1 (3.5-5.1) g/dL <Bryn Loredo MD - Last Filed: 04/18/25 08:50> Imaging Data Attestation: I personally reviewed and interpreted this imaging study as follows: < Jules Patel MD - Last Filed: 04/18/25 07:27> Radiologist's impression: CT abdomen/ pelvis with contrast: 9 cm subcapsular hematoma overlying the left hepatic lobe with moderate hemoperitoneum, recommended multiphase CTA. CT abdomen/ pelvis: 9 cm subcapsular hematoma overlying the left hepatic lobe unchanged from prior. 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 <Jules Patel MD - Last Filed: 04/18/25 07:27> Discharge Plan Discharge Clinical Impression: Liver hematoma <Jules Patel MD - Last Filed: 04/18/25 07:27> Patient Disposition: Acute Care Hospital <Jules Patel MD - Last Filed: 04/18/25 07:27> Condition: Stable <Jules Patel MD - Last Filed: 04/18/25 07:27> Patient Language: Citizen Of [place] <Jules Patel MD - Last Filed: 04/18/25 07:27> Prescriptions: No Action Zyrtec 10 mg capsule 10 mg PO BID PRN (Reason: allergy symptoms) Qty: 30 0RF cholecalciferol (vitamin D3) 125 mcg (5,000 unit) capsule 125 mcg PO DAILY aspirin [Adult Low Dose Aspirin] 81 mg tablet,delayed release (DR/EC) 81 mg PO DAILY Qty: 90 3RF triamcinolone acetonide 0.5 % ointment 1 applic topical BID Qty: 45 0RF nifedipine 60 mg tablet extended release 60 mg PO DAILY Qty: 90 0RF betamethasone valerate 0.1 % cream 1 applic topical BID PRN (Reason: rash) Qty: 45 0RF levothyroxine 125 mcg tablet See Rx Instructions .ROUTE .COMPLEX Qty: 90 3RF Dose Instruction: Take 1 tablet by mouth once daily Rx Instructions: Take 1 tablet by mouth once daily losartan 50 mg tablet See Rx Instructions .ROUTE .COMPLEX Qty: 90 3RF Dose Instruction: Take 1 tablet by mouth once daily Rx Instructions: Take 1 tablet by mouth once daily metoprolol tartrate 100 mg tablet See Rx Instructions .ROUTE .COMPLEX Qty: 180 3RF Dose Instruction: TAKE 1 TABLET BY MOUTH EVERY 12 HOURS Rx Instructions: TAKE 1 TABLET BY MOUTH EVERY 12 HOURS alendronate 70 mg tablet 70 mg PO WEEKLY Qty: 12 3RF <Jules Patel MD - Last Filed: 04/18/25 07:27> Follow-up/Referrals: Cezar Ray DO [Primary Care Provider, [facility]] <Jules Patel MD - Last Filed: 04/18/25 07:27>
[2025-04-17] MEDS: ONDANSETRON INJ 4 MG/2 ML VIAL IV PUSH (22:44)
[2025-04-17] MEDS: MORPHINE SULFATE (*CRX) 4 MG/ML INJ IV PUSH (22:44)
[2025-04-17 22:56] LABS: Hematocrit 35.2 % (37.0-47.0); Hemoglobin 11.5 g/dL (12.0-15.0); Immature Granulocyte Percent A 0.7 % (0-0.5); Lymphocytes Absolute Auto 0.88 K/mm3 (0.9-3.2); Mean Corpuscular HGB Conc 32.7 g/dl (32-36); Mean Corpuscular Hemoglobin 28.9 pg (26-34); Mean Corpuscular Volume 88.4 fl (80-100); Nucleated Red Blood Cells Absolute Auto 0.000 K/mm3 (0.0-0.012); Nucleated Red Blood Cells Perc 0.0 % (0.0-0.2); Platelet Count Result 306 k/mm3 (150-375); Red Blood Count 3.98 M/mm3 (4.2-5.4); White Blood Count 14.4 K/mm3 (4.5-10.0)
[2025-04-17 23:03] LABS: Alanine Aminotransferase 84 U/L (6-35); Albumin Level 4.1 g/dL (3.5-5.1); Alkaline Phosphatase 72 U/L (38-126); Anion Gap 13 mmol/L (4-12); Aspartate Amino Transferase 86 U/L (14-36); Bilirubin,Total 0.5 mg/dL (0.2-1.3); Blood Urea Nitrogen 23 mg/dL (7-17); Calcium 9.0 mg/dL (8.4-10.2); Carbon Dioxide 26 mmol/L (22-30); Chloride 99 mmol/L (98-107); Estimated Glomerular Filt Rate 38; Glucose 183 mg/dL (65-110); Potassium 3.8 mmol/L (3.4-5.0); Sodium 138 mmol/L (137-145); Total Protein 7.4 g/dL (6.3-8.2)
[2025-04-17 23:12] LABS: NT Pro B Type Natriuretic Pept 187 pg/mL (19.9-100); Troponin I < 0.012 ng/mL (0.000-0.034)
[2025-04-17] MEDS: SODIUM CHLORIDE 0.9% IV 1,000 ML 999 ML IV CONT (23:23)
[2025-04-18] VITALS: BP 119/60; PULSE 71; RESP 18; TEMP 37.1; O2SAT 98
[2025-04-18] MEDS: MORPHINE SULFATE (*CRX) 4 MG/ML INJ IV PUSH ×2 (02:13→06:02)
[2025-04-18 02:14] VITALS: BP 124/64; PULSE 78; RESP 18; TEMP 36.4; O2SAT 98
[2025-04-18 04:09] VITALS: BP 122/58; PULSE 70; RESP 18; TEMP 36.6; O2SAT 99
[2025-04-18 06:10] VITALS: BP 107/69; PULSE 72; RESP 18; TEMP 37.1; O2SAT 98
[2025-04-18 06:20] LABS: Hematocrit 30.9 % (37.0-47.0); Hemoglobin 10.1 g/dL (12.0-15.0)
[2025-04-18 07:02] VITALS: BP 111/65; PULSE 69; RESP 18; O2SAT 97
[2025-04-18 08:05] VITALS: BP 124/72; PULSE 72; RESP 16; O2SAT 97
--- NOTE | 2025-04-18 08:10 | PC.NURSE ---
pt accepted at [facility] ED. Accepting Physician is Dr. Waite. Transfer Center called and states they are still trying to make a decision if pt will need general surgery or IR. They are requesting for us to keep pt until they call back with a decision. EDP made aware.
== END 2025-04-18 09:00 | disposition short-term general hospital (02) ==
PROVIDERS: Emergency Provider Student in an Organized Health Care Education/Training Program; PCP Family Medicine
DX: K91.870 Postprocedural hematoma of a digestive system organ or structure following a digestive system procedure (principal); I10 Essential (primary) hypertension; E78.5 Hyperlipidemia, unspecified; E03.9 Hypothyroidism, unspecified; Z86.0101 Personal history of adenomatous and serrated colon polyps; Z79.82 Long term (current) use of aspirin; Z79.899 Other long term (current) drug therapy; Y84.8 Other medical procedures as the cause of abnormal reaction of the patient, or of later complication, without mention of misadventure at the time of the procedure; R94.31 Abnormal electrocardiogram [ECG] [EKG]
CPT/HCPCS: 36415; 71045; 74174; 74177; 80053; 83880; 84484; 85014; 85018; 85025; 93005; 96361; 96374; 96375; 96376; 99285; J2270; J2405; J7030; Q9967

== ENCOUNTER 2025-05-22 08:00 | Outpatient (CLI) | payer MEDICARE, OTHER, SELFPAY ==
[2025-05-22 08:10] LABS: Hematocrit 39.6 % (35.0-42.0); Hemoglobin 12.7 g/dL (11.7-13.8); Mean Corpuscular HGB Conc 32.1 g/dL (32-36); Mean Corpuscular Hemoglobin 28.3 pg (27.0-31.0); Mean Corpuscular Volume 88.2 fL (78.0-102.0); Platelet Count Result 262 K/mm3 (150-420); Red Blood Count 4.49 M/mm3 (4.20-5.40); White Blood Count 6.2 K/mm3 (4.8-10.8)
[2025-05-22 08:48] LABS: Alanine Aminotransferase 15 U/L (6-35); Albumin Level 4.3 g/dL (3.5-5.1); Alkaline Phosphatase 83 U/L (38-126); Anion Gap 6 mmol/L (4-12); Aspartate Amino Transferase 28 U/L (14-36); Bilirubin,Total 0.6 mg/dL (0.2-1.3); Blood Urea Nitrogen 14 mg/dL (7-17); Calcium 9.5 mg/dL (8.4-10.2); Carbon Dioxide 34 mmol/L (22-30); Chloride 101 mmol/L (98-107); Estimated Glomerular Filt Rate > 60; Glucose 95 mg/dL (65-110); Osmolality Calculated 292 mOsm/kg (285-295); Potassium 4.3 mmol/L (3.4-5.0); Sodium 141 mmol/L (137-145); Total Protein 8.3 g/dL (6.3-8.2)
== END 2025-05-22 08:01 | disposition home or self-care (01) ==
LOC: CHSLAB 08:01
PROVIDERS: PCP Family Medicine; Visit Provider Internal Medicine Gastroenterology
DX: R74.01 Elevation of levels of liver transaminase levels (principal); K76.89 Other specified diseases of liver
CPT/HCPCS: 36415; 80053; 85027